=== PATIENT | female | born 1970 | race African-American/Black ===

== ENCOUNTER 2018-01-09 04:11 | Emergency (ER) | payer SELFPAY ==
--- NOTE | 2018-01-09 08:27 | RAD ---
4 VIEWS LEFT KNEE: Date: 01/09/18 HISTORY: Joint pain. COMPARISON: None. FINDINGS: No joint effusion. Mild loss of medial compartment joint space height. No fracture or malalignment. IMPRESSION: Mild degenerative change medial compartment. POS: REE
== END 2018-01-09 06:05 | disposition home or self-care (01) ==
LOC: ERS 04:11
DX: M25.562 Pain in left knee (principal); I25.2 Old myocardial infarction; K21.9 Gastro-esophageal reflux disease without esophagitis; I10 Essential (primary) hypertension; F41.9 Anxiety disorder, unspecified; F17.210 Nicotine dependence, cigarettes, uncomplicated; Z79.899 Other long term (current) drug therapy

== ENCOUNTER 2024-04-02 10:59 | Outpatient (CLI) | payer OTHER | END 2024-04-02 11:00 | disposition home or self-care (01) | LOC: RAD 10:59 | PROVIDERS: ATTEND Internal Medicine | DX: Z02.71 Encounter for disability determination (principal); M17.12 Unilateral primary osteoarthritis, left knee; M47.816 Spondylosis without myelopathy or radiculopathy, lumbar region | CPT/HCPCS: 72100 ==